=== PATIENT | female | born 1960 | race Caucasian/White ===

== ENCOUNTER 2017-01-08 06:24 | Emergency (ER) | payer OTHER ==
[~2017-01-08] VITALS: Ht 160 cm; Wt 131.4 kg
[~2017-01-08 06:24] MED LIST: ALBU17AE16 IH; ASPI81TA2 PO; BACL10TA PO; BENA10TA3 PO; GABA-531 PO; IBUP-1547 PO; LEVO300T4 PO; METF10002 PO; OMEG1CAP11 PO
[2017-01-08 06:38] LABS: GLUCOSE,POINT OF CARE 250 MG/DL (70-110)
[2017-01-08] MEDS ORDERED: JANUVIA PO (06:38)
[2017-01-08] MEDS ORDERED: DiphenhydrAMINE HCL 50 MG/ML VIAL IM ONE (07:00)
[2017-01-08] MEDS ORDERED: MethylPREDNISolone SOD SUCC 125 MG/2 ML VIAL IVP ONE (07:00)
[2017-01-08] MEDS ORDERED: RANITIDINE HCL 25 MG/ML 2 ML VIAL IVP ONE (07:00)
[2017-01-08 09:16] VITALS: BP 116/80
== END 2017-01-08 09:40 | disposition home or self-care (01) ==
LOC: EMS 06:27
DX: T78.1XXA Other adverse food reactions, not elsewhere classified, initial encounter (principal); E11.9 Type 2 diabetes mellitus without complications; I10 Essential (primary) hypertension; E03.9 Hypothyroidism, unspecified; J45.909 Unspecified asthma, uncomplicated; Z79.82 Long term (current) use of aspirin; X58.XXXA Exposure to other specified factors, initial encounter
CPT/HCPCS: 82962; 96372; 96374; 96375; 99284; J1200; J2780; J2930

== ENCOUNTER 2017-10-01 17:47 | Emergency (ER) | payer OTHER ==
[~2017-10-01] VITALS: Ht 154.9 cm; Wt 127.3 kg
[~2017-10-01 17:47] MED LIST changes: -ASPI81TA2 PO; +ASPI81TA39 PO; -IBUP-1547 PO; +IBUP-2071 PO; +JANUVIA PO
[2017-10-01 18:08] LABS: GLUCOSE,POINT OF CARE 485 MG/DL (70-110)
[2017-10-01 19:04] LABS: INFLUENZA TYPE A NEGATIVE FOR TYPE A (NEGATIVE); INFLUENZA TYPE B POSITIVE FOR TYPE B (NEGATIVE)
[2017-10-01] MEDS ORDERED: SITA100 PO (19:26)
[2017-10-01] MEDS ORDERED: SODIUM CHLORIDE 0.9% 1,000 ML IV ONE (19:30)
[2017-10-01] MEDS ORDERED: ACETAMINOPHEN 500 MG TABLET PO ONE (19:30)
[2017-10-01] MEDS ORDERED: KETOROLAC TROMETHAMINE 30 MG/ML VIAL IVP ONE (19:30)
[2017-10-01] MEDS ORDERED: ALBUTEROL SULFATE HFA 90 MCG/PUFF 8 GM INHALER IH ONE (19:30)
[2017-10-01] MEDS ORDERED: ONDANSETRON HCL 4 MG/2 ML VIAL IVP ONE (19:30)
[2017-10-01] MEDS ORDERED: INSULIN REGULAR, HUMAN 100 UNITS/ML IVP ONE (19:30)
[2017-10-01 19:45] LABS: BASOPHILS % (AUTO) 1.1 % (0.0-2.0); EOSINOPHILS % (AUTO) 11.3 % (1.0-6.0); HEMATOCRIT 41.8 % (36-46); HEMOGLOBIN 13.9 g/dL (12.0-16.0); LYMPHOCYTES # (AUTO) 1.3 K/uL (1.0-4.8); LYMPHOCYTES % (AUTO) 23.1 % (22.0-44.0); MEAN CORPUSCULAR HEMOGLOBIN 27.6 pg (26.0-34.0); MEAN CORPUSCULAR HGB CONC 33.3 G/dL (31.0-37.0); MEAN CORPUSCULAR VOLUME 83 fL (80-100); MONOCYTES # (AUTO) 0.5 K/uL (0.1-1.0); MONOCYTES % (AUTO) 8.8 % (2.0-9.0); NEUTROPHILS # (AUTO) 3.2 K/uL (1.8-7.7); NEUTROPHILS % (AUTO) 55.7 % (40.0-70.0); PLATELET COUNT (AUTO) 211 K/uL (150-450); RED BLOOD CELL COUNT(AUTO) 5.03 MIL/uL (4.00-5.20); RED CELL DISTRIBUTION WIDTH 15.4 % (11.5-14.5)
[2017-10-01 20:22] LABS: ALANINE AMINOTRANSFERASE 47 U/L (12-78); ALBUMIN 3.3 g/dL (3.4-5.0); ALKALINE PHOSPHATASE 105 U/L (46-116); ANION GAP 3 mmol/L (8-16); ASPARTATE AMINOTRANSFERASE 31 U/L (15-37); BILIRUBIN,TOTAL 0.2 mg/dL (0.1-1.0); CALCIUM, TOTAL 8.9 mg/dL (8.8-10.5); CARBON DIOXIDE 34 mmol/L (22-29); CHLORIDE 98 mmol/L (98-107); CREATININE 0.91 mg/dL (0.60-1.30); GLOMERULAR FILTR. RATE CALC > 60 mL/min (>60); POTASSIUM 4.1 mmol/L (3.5-5.1); SODIUM SERUM 135 mmol/L (136-145); TOTAL PROTEIN, SERUM 8.2 g/dL (6.4-8.2); UREA NITROGEN, BLOOD 16 mg/dL (7-18)
[2017-10-01 20:24] LABS: GLUCOSE,RANDOM 460 mg/dL (70-110)
[2017-10-01 20:30] LABS: ACETONE,BLOOD NEGATIVE (NEGATIVE)
[2017-10-01 20:53] LABS: GLUCOSE,POINT OF CARE 315 MG/DL (70-110)
[2017-10-01 21:08] VITALS: BP 128/70
== END 2017-10-01 21:12 | disposition home or self-care (01) ==
LOC: EMS 17:49
DX: J20.9 Acute bronchitis, unspecified (principal); J10.1 Influenza due to other identified influenza virus with other respiratory manifestations; E11.65 Type 2 diabetes mellitus with hyperglycemia; R07.89 Other chest pain; E05.90 Thyrotoxicosis, unspecified without thyrotoxic crisis or storm; E03.9 Hypothyroidism, unspecified; Z90.49 Acquired absence of other specified parts of digestive tract; Z98.890 Other specified postprocedural states; Z79.82 Long term (current) use of aspirin; Z79.4 Long term (current) use of insulin; Z79.899 Other long term (current) drug therapy
CPT/HCPCS: 36415; 71045; 80053; 82009; 82962; 84484; 85025; 87804; 94640; 96361; 96374; 96375; 99285; J1815; J1885; J2405; J7030; J3535

== ENCOUNTER 2018-08-25 13:38 | Emergency (ER) | payer OTHER ==
[~2018-08-25] VITALS: Ht 162.6 cm; Wt 127.3 kg
[~2018-08-25 13:38] MED LIST changes: +BENA10TA10 PO; -BENA10TA3 PO; -JANUVIA PO; +METF-446 PO; -METF10002 PO; +SITA100 PO
[2018-08-25 14:48] LABS: APPEARANCE,URINE CLEAR (CLEAR); BILIRUBIN,URINE NEGATIVE (NEGATIVE); GLUCOSE, URINE (UA) >=1000 mg/dL (NEGATIVE); KETONES,URINE NEGATIVE (NEGATIVE); LEUKOCYTE ESTERASE ,URINE NEGATIVE (NEGATIVE); NITRATE,URINE NEGATIVE (NEGATIVE); OCCULT BLOOD,URINE NEGATIVE (NEGATIVE); PH,URINE 5.5 (5.0-8.0); PROTEIN,URINE NEGATIVE (NEGATIVE)
[2018-08-25 14:53] LABS: RBC,URINE None Seen /HPF (0-2); WBC,URINE 0-2 /HPF (0-5)
[2018-08-25 14:54] LABS: BACTERIA,URINE Few /HPF (None Seen); SQUAMOUS EPITHELIAL CELL,UR Few /LPF (None Seen)
[2018-08-25] MEDS ORDERED: METHOCARBAMOL 500 MG TABLET PO ONE (17:00)
[2018-08-25] MEDS ORDERED: KETOROLAC TROMETHAMINE 60 MG/2 ML VIAL IM ONE (17:00)
[2018-08-25 17:08] VITALS: BP 152/89
== END 2018-08-25 17:37 | disposition home or self-care (01) ==
LOC: EMS 13:39
DX: S39.012A Strain of muscle, fascia and tendon of lower back, initial encounter (principal); I10 Essential (primary) hypertension; E11.9 Type 2 diabetes mellitus without complications; E03.9 Hypothyroidism, unspecified; J45.909 Unspecified asthma, uncomplicated; Z79.82 Long term (current) use of aspirin; Z79.84 Long term (current) use of oral hypoglycemic drugs; X50.9XXA Other and unspecified overexertion or strenuous movements or postures, initial encounter; Y93.89 Activity, other specified; Y92.89 Other specified places as the place of occurrence of the external cause; Y99.8 Other external cause status
CPT/HCPCS: 81001; 82962; 96372; 99283; J1885

== ENCOUNTER 2018-12-07 22:57 | Emergency (ER) | payer OTHER ==
[~2018-12-07] VITALS: Ht 165.1 cm; Wt 129.6 kg
[2018-12-07] MEDS ORDERED: GLIP5 PO (23:21)
[2018-12-07 23:29] LABS: GLUCOSE,POINT OF CARE 219 MG/DL (70-110)
[2018-12-08] MEDS ORDERED: SULFAMETHOX/TRIMETH DS 800-160 MG/TABLET PO ONE (02:15)
[2018-12-08] MEDS ORDERED: CEPHALEXIN MONOHYDRATE 500 MG CAPSULE PO ONE (02:15)
[2018-12-08] MEDS ORDERED: LIDOCAINE 1% 10 ML VIAL INJ ONE (02:15)
[2018-12-08] MEDS ORDERED: HYDROCODONE/ACETAMINOPHEN 5-325 MG TABLET PO ONE (02:15)
[2018-12-08 05:34] VITALS: BP 136/65
== END 2018-12-08 05:51 | disposition home or self-care (01) ==
LOC: EMS 23:00
DX: L02.211 Cutaneous abscess of abdominal wall (principal); I10 Essential (primary) hypertension; E03.9 Hypothyroidism, unspecified; E11.9 Type 2 diabetes mellitus without complications; J45.909 Unspecified asthma, uncomplicated; Z79.82 Long term (current) use of aspirin; Z79.899 Other long term (current) drug therapy
CPT/HCPCS: 10060; 82962; 99284; J3490

== ENCOUNTER 2019-06-12 22:05 | Emergency (ER) | payer OTHER ==
[~2019-06-12] VITALS: Ht 165.1 cm; Wt 126.4 kg
[~2019-06-12 22:05] MED LIST changes: -BACL10TA PO; -BENA10TA10 PO; +BENA10TA76 PO; -GABA-531 PO; +GLIP5 PO; -OMEG1CAP11 PO
[2019-06-13 00:31] VITALS: BP 143/73
== END 2019-06-13 00:36 | disposition home or self-care (01) ==
LOC: EMS 22:07
DX: S29.012A Strain of muscle and tendon of back wall of thorax, initial encounter (principal); J06.9 Acute upper respiratory infection, unspecified; E11.65 Type 2 diabetes mellitus with hyperglycemia; M54.6 Pain in thoracic spine; E03.9 Hypothyroidism, unspecified; E66.9 Obesity, unspecified; I10 Essential (primary) hypertension; J45.909 Unspecified asthma, uncomplicated; Z90.49 Acquired absence of other specified parts of digestive tract; Z98.890 Other specified postprocedural states; Z79.899 Other long term (current) drug therapy; Z68.42 Body mass index [BMI] 45.0-49.9, adult; X58.XXXA Exposure to other specified factors, initial encounter; Y93.89 Activity, other specified; Y92.89 Other specified places as the place of occurrence of the external cause; Y99.8 Other external cause status

== ENCOUNTER 2019-09-16 01:51 | Emergency (ER) | payer SELFPAY ==
[~2019-09-16] VITALS: Ht 165.1 cm; Wt 131.8 kg
[2019-09-16] MEDS ORDERED: ALBUTEROL SULFATE 2.5 MG/0.5 ML NEB SOLUTION NEB ONE (02:15)
[2019-09-16] MEDS ORDERED: IPRATROPIUM BROMIDE 0.5 MG/2.5 ML NEB SOLUTION NEB ONE (02:15)
[2019-09-16 02:25] LABS: GLUCOSE,POINT OF CARE 260 MG/DL (70-110)
[2019-09-16] MEDS ORDERED: ALBUTEROL SULFATE HFA 90 MCG/PUFF 8 GM INHALER IH ONE (03:00)
[2019-09-16 03:20] VITALS: BP 134/72
== END 2019-09-16 03:23 | disposition home or self-care (01) ==
LOC: EMS 01:51
DX: J45.909 Unspecified asthma, uncomplicated (principal); E11.9 Type 2 diabetes mellitus without complications; E07.89 Other specified disorders of thyroid; I10 Essential (primary) hypertension; Z90.49 Acquired absence of other specified parts of digestive tract; Z98.890 Other specified postprocedural states; Z79.899 Other long term (current) drug therapy; Z79.82 Long term (current) use of aspirin
CPT/HCPCS: 94640; J3535

== ENCOUNTER 2020-08-26 14:16 | Emergency (ER) | payer OTHER ==
[~2020-08-26] VITALS: Ht 165.1 cm; Wt 127.3 kg
[2020-08-26 16:33] LABS: BASOPHILS % (AUTO) 0.1 % (0.0-2.0); EOSINOPHILS % (AUTO) 0.1 % (1.0-6.0); HEMATOCRIT 36.4 % (36-46); HEMOGLOBIN 11.9 g/dL (12.0-16.0); LYMPHOCYTES # (AUTO) 0.7 K/uL (1.0-4.8); LYMPHOCYTES % (AUTO) 11.6 % (22.0-44.0); MEAN CORPUSCULAR HEMOGLOBIN 26.9 pg (26.0-34.0); MEAN CORPUSCULAR HGB CONC 32.7 G/dL (31.0-37.0); MEAN CORPUSCULAR VOLUME 82 fL (80-100); MONOCYTES # (AUTO) 0.3 K/uL (0.1-1.0); MONOCYTES % (AUTO) 4.5 % (2.0-9.0); NEUTROPHILS # (AUTO) 5.3 K/uL (1.8-7.7); NEUTROPHILS % (AUTO) 83.7 % (40.0-70.0); PLATELET COUNT (AUTO) 233 K/uL (150-450); RED BLOOD CELL COUNT(AUTO) 4.42 MIL/uL (4.00-5.20); RED CELL DISTRIBUTION WIDTH 14.9 % (11.5-14.5)
[2020-08-26 16:48] LABS: CALCIUM, TOTAL 8.3 mg/dL (8.8-10.5); CREATININE 0.96 mg/dL (0.60-1.30); POTASSIUM 4.4 mmol/L (3.5-5.1)
[2020-08-26 16:54] LABS: ALBUMIN 3.1 g/dL (3.4-5.0); BILIRUBIN,TOTAL 0.4 mg/dL (0.1-1.0); TOTAL PROTEIN, SERUM 7.9 g/dL (6.4-8.2)
[2020-08-26 17:54] VITALS: BP 146/82
[2020-08-26 18:02] LABS: APPEARANCE,URINE CLOUDY (CLEAR); BILIRUBIN,URINE NEGATIVE (NEGATIVE); GLUCOSE, URINE (UA) >=1000 mg/dL (NEGATIVE); KETONES,URINE NEGATIVE (NEGATIVE); LEUKOCYTE ESTERASE ,URINE NEGATIVE (NEGATIVE); NITRATE,URINE NEGATIVE (NEGATIVE); OCCULT BLOOD,URINE NEGATIVE (NEGATIVE); PH,URINE 5.5 (5.0-8.0); PROTEIN,URINE NEGATIVE (NEGATIVE)
[2020-08-26 20:00] LABS: BACTERIA,URINE Rare /HPF (None Seen); RBC,URINE 0-2 /HPF (0-2); SQUAMOUS EPITHELIAL CELL,UR Few /LPF (None Seen); WBC,URINE 0-2 /HPF (0-5)
== END 2020-08-26 19:20 | disposition home or self-care (01) ==
LOC: EMS 14:16
DX: U07.1 COVID-19 (principal); E11.65 Type 2 diabetes mellitus with hyperglycemia; J45.901 Unspecified asthma with (acute) exacerbation
CPT/HCPCS: 83605; 93005; 36415-L1; 36415-TC; 71045-TC

== ENCOUNTER 2024-07-25 09:13 | Emergency (ER) | payer OTHER ==
[~2024-07-25] VITALS: Ht 154.9 cm; Wt 134.1 kg
[~2024-07-25 09:13] MED LIST changes: -ALBU17AE16 IH; +ALBU18HF12 IH; +ASPI-1444 PO; -ASPI81TA39 PO; +ATOR40TA71 PO; -BENA10TA76 PO; +CETI10TA58 PO; +EMPA10TA3 PO; -GLIP5 PO; +GLIP5TAB16 PO; +HYDR-4396 PO; -IBUP-2071 PO; +LISI30TA4 PO; +PIOG30TA70 PO; +SEMA1PEN3 SQ; +SENN-374 PO; -SITA100 PO
[2024-07-25] MEDS: OxyCODONE HCL/ACETAMINOPHEN 5-325 MG TABLET PO ONE (10:28)
[2024-07-25] MEDS ORDERED: IBUP-1492 PO (10:28)
[2024-07-25] MEDS ORDERED: PERCT PO (10:28)
[2024-07-25 10:29] VITALS: BP 140/70; PULSE 72; RESP 18; TEMP 98; O2SAT 98
== END 2024-07-25 10:36 | disposition home or self-care (01) ==
LOC: EMS 09:13
DX: S09.90XA Unspecified injury of head, initial encounter (principal); J45.909 Unspecified asthma, uncomplicated; E11.9 Type 2 diabetes mellitus without complications; I10 Essential (primary) hypertension; E03.9 Hypothyroidism, unspecified; E66.9 Obesity, unspecified; Z90.49 Acquired absence of other specified parts of digestive tract; Z90.89 Acquired absence of other organs; Z87.440 Personal history of urinary (tract) infections; Z79.85 Long-term (current) use of injectable non-insulin antidiabetic drugs; Z79.84 Long term (current) use of oral hypoglycemic drugs; Z79.82 Long term (current) use of aspirin; W19.XXXA Unspecified fall, initial encounter; Y93.89 Activity, other specified; Y92.89 Other specified places as the place of occurrence of the external cause; Y99.8 Other external cause status
CPT/HCPCS: 70450; 99284

== ENCOUNTER 2024-10-08 12:39 | Emergency (ER) | payer OTHER ==
[~2024-10-08] VITALS: Ht 160 cm; Wt 132.0 kg
[~2024-10-08 12:39] MED LIST changes: -CETI10TA58 PO; -EMPA10TA3 PO; -GLIP5TAB16 PO; -HYDR-4396 PO; -LISI30TA4 PO; -PIOG30TA70 PO
[2024-10-08 12:41] VITALS: TEMP 98.6
[2024-10-08] MEDS ORDERED: LISI30TA4 PO (12:50)
[2024-10-08] MEDS ORDERED: LEVO300T8 PO (12:50)
[2024-10-08] MEDS ORDERED: GLIP5TAB15 PO (12:50)
[2024-10-08] MEDS ORDERED: SEMA2PEN SQ (12:50)
[2024-10-08] MEDS ORDERED: LEVO25TA4 PO (12:50)
[2024-10-08 13:04] LABS: COVID AG,FIA SOURCE NASAL SWAB
[2024-10-08 13:43] LABS: INFLUENZA TYPE A NEGATIVE FOR TYPE A (NEGATIVE); INFLUENZA TYPE B NEGATIVE FOR TYPE B (NEGATIVE); SARS-COV2 (COVID) ANTIGEN,FIA Negative (Negative)
[2024-10-08] MEDS ORDERED: PIOG30TA70 PO (13:44)
[2024-10-08 14:02] VITALS: PULSE 86; RESP 20; O2SAT 97
[2024-10-08] MEDS: ALBUTEROL SULFATE 2.5 MG/0.5 ML NEB SOLUTION NEB ONE (14:02)
[2024-10-08] MEDS: ALBUTEROL SULFATE HFA 90 MCG/PUFF 8 GM INHALER IH ONE (14:02)
[2024-10-08] MEDS: IPRATROPIUM BROMIDE 0.5 MG/2.5 ML NEB SOLUTION NEB ONE (14:02)
[2024-10-08 14:15] VITALS: PULSE 85; RESP 20; O2SAT 99
[2024-10-08 14:23] VITALS: BP 144/73; PULSE 91; RESP 20; O2SAT 97
== END 2024-10-08 15:45 | disposition home or self-care (01) ==
LOC: EMS 12:39
DX: B34.9 Viral infection, unspecified (principal); J45.909 Unspecified asthma, uncomplicated; E11.9 Type 2 diabetes mellitus without complications; I10 Essential (primary) hypertension; E03.9 Hypothyroidism, unspecified; Z79.82 Long term (current) use of aspirin; Z79.84 Long term (current) use of oral hypoglycemic drugs; Z90.49 Acquired absence of other specified parts of digestive tract; Z90.89 Acquired absence of other organs; Z87.440 Personal history of urinary (tract) infections; Z79.899 Other long term (current) drug therapy; Z20.822 Contact with and (suspected) exposure to COVID-19
CPT/HCPCS: 99284; 71045; 87426; 87804; 94640; 82962; J3535; J7613